=== PATIENT | male | born 1945 | race Caucasian/White ===

== ENCOUNTER 2016-09-01 09:54 | Outpatient (CLI) ==
[2014-03-14 20:10] VITALS: BMI 26.2
[2016-09-01 10:35] VITALS: BP 124/76; TEMP 97.2
== END 2016-09-01 09:55 | disposition home or self-care (01) ==
LOC: OUTPT 09:54
PROVIDERS: ATTEND Family Medicine
DX: N40.1 Benign prostatic hyperplasia with lower urinary tract symptoms (principal)
CPT/HCPCS: 51798

== ENCOUNTER 2017-03-16 16:12 | Outpatient (CLI) ==
[2012-08-29 00:26] VITALS: TEMP 97.8
[2014-03-14 20:10] VITALS: BMI 26.2
== END 2017-03-16 16:13 | disposition home or self-care (01) ==
LOC: LAB 16:12
PROVIDERS: ATTEND Nurse Practitioner Family
DX: J02.9 Acute pharyngitis, unspecified (principal); R50.9 Fever, unspecified
CPT/HCPCS: 87502; 87651